=== PATIENT | male | born 1990 | race Caucasian/White ===

== ENCOUNTER 2018-06-18 18:46 | Emergency (ER) | payer OTHER ==
[2018-06-18] MEDS ORDERED: NS 1,000 ML IV ONE (19:22)
--- NOTE | 2018-06-18 19:25 | EDPHY ---
H & P Time Seen by Provider: 06/18/18 19:08 HPI/ROS: CHIEF COMPLAINT: Abdominal pain HISTORY OF PRESENT ILLNESS: Patient is visiting from [place], went snowboarding on Thursday at the [facility] [place] when he caught the front edge of his snowboard and fell forwards. The he has had some back and abdominal pain ever since and then on Thursday had abdominal pain followed by multiple episodes of diarrhea. About 10 times since then. Today he had worsening abdominal pain had episode of diarrhea with red blood in the toilet. Presents here after driving from [place] to [place]. Worse with palpation, not better worse with eating or drinking, no vomiting. REVIEW OF SYSTEMS: Eye: no change in vision ENT: no sore throat Cardiac: no chest pain or syncope Pulmonary: no cough or SOB Abdomen: HPI Musculoskeletal: HPI Skin: no rash Neuro: no headache, no weakness or numbness in legs Constitutional: no fever : No hematuria A comprehensive 10 point review of systems is otherwise negative aside from elements mentioned in the history of present illness. PAST MEDICAL HISTORY: Negative Social history: No recent foreign travel. Lives in [place] in [place], went to the [facility]. General Appearance: Alert and conversant, cooperative. Eyes: No scleral icterus. ENT, Mouth: Normal mucous membranes. Respiratory: Normal respiratory effort, breath sounds equal, lungs are clear to auscultation. Cardiovascular: Regular rate and rhythm. Gastrointestinal: Right upper quadrant and McBurney's point tenderness to palpation, decreased bowel sounds, no hernia, normal male . Neurological: Alert, face symmetric, normal motor and sensory in extremities. Ambulatory. Skin: Warm and dry, no rashes. Musculoskeletal: No cervical or thoracic spinal tenderness but he has midline lumbar tenderness to palpation. Psychiatric: Not agitated. Emergency Department course/MDM: The plan for i-STAT and then CT scanning abdomen and pelvis with lumbar spine reconstruction. Differential considered including but not limited to gastroenteritis, GI bleed, appendicitis, intra-abdominal bleeding from trauma. Rectal examination with anoscopy shows internal hemorrhoid with no active bleeding. Likely irritated from diarrhea. 2154: Negative abdominal pelvis CT per Dr. Aldana. Results discussed with the patient. Likely infectious gastrointestinal problem , but does not appear to have acute significant GI bleed, intestinal perforation , appendicitis, internal bleeding from trauma, renal injury, spine fracture. Symptomatic treatment and warned he needs to follow up in [place] for a slightly elevated liver function test. Smoking Status: Heavy smoker Constitutional: Initial Vital Signs Temperature (C) 36.8 C 06/18/18 19:03 Heart Rate 94 06/18/18 19:03 Respiratory Rate 18 06/18/18 19:03 Blood Pressure 134/93 H 06/18/18 19:03 O2 Sat (%) 97 06/18/18 19:03 O2 Delivery Mode Room Air Allergies/Adverse Reactions: No Known Allergies Allergy (Verified 06/18/18 19:03) Home Medications: Medication Instructions Recorded None 03/19/09 Medical Decision Making - Diagnostics Imaging Results: Imaging Impressions Abdomen CT 06/18/18 19:58 Impression: No evidence of abdominopelvic inflammatory mass or ascites. Dr. Polo was notified of these findings by telephone at 10:00 PM on 06/18/2018 Imaging: Discussed imaging studies w/ at home independent call center agent Radiologist - Data Points Laboratory Results: Laboratory Results 06/18/18 19:45 06/18/18 19:45 06/18/18 06/18/18 06/18/18 19:45 19:45 19:45 WBC 9.12 10^3/uL 10^3/uL (3.80-9.50) RBC 5.15 10^6/uL 10^6/uL (4.40-6.38) Hgb 15.7 g/dL g/dL (13.7-17.5) POC Hgb 15.6 gm/dL gm/dL (13.7-17.5) Hct 44.2 % % (40.0-51.0) POC Hct 46 % % (40-51) MCV 85.8 fL fL (81.5-99.8) MCH 30.5 pg pg (27.9-34.1) MCHC 35.5 g/dL g/dL (32.4-36.7) RDW 11.6 % % (11.5-15.2) Plt Count 357 10^3/uL 10^3/uL (150-400) MPV 9.4 fL fL (8.7-11.7) Neut % (Auto) 78.2 % H % (39.3-74.2) Lymph % (Auto) 17.7 % % (15.0-45.0) [place]ether % (Auto) 3.5 % L % (4.5-13.0) Eos % (Auto) 0.0 % L % (0.6-7.6) Baso % (Auto) 0.3 % % (0.3-1.7) Nucleat RBC Rel Count 0.0 % % (0.0-0.2) Absolute Neuts (auto) 7.13 10^3/uL H 10^3/uL (1.70-6.50) Absolute Lymphs (auto) 1.61 10^3/uL 10^3/uL (1.00-3.00) Absolute Monos (auto) 0.32 10^3/uL 10^3/uL (0.30-0.80) Absolute Eos (auto) 0.00 10^3/uL L 10^3/uL (0.03-0.40) Absolute Basos (auto) 0.03 10^3/uL 10^3/uL (0.02-0.10) Absolute Nucleated RBC 0.00 10^3/uL 10^3/uL (0-0.01) Immature Gran % 0.3 % % (0.0-1.1) Immature Gran # 0.03 10^3/uL 10^3/uL (0.00-0.10) POC Sodium 141 mEq/L mEq/L (135-145) Sodium 139 mEq/L mEq/L (135-145) POC Potassium 3.7 mEq/L mEq/L (3.3-5.0) Potassium 4.0 mEq/L mEq/L (3.5-5.2) POC Chloride 103 mEq/L mEq/L (97-110) Chloride 104 mEq/L mEq/L (97-110) Carbon Dioxide 23 mEq/l mEq/l (22-31) Anion Gap 12 mEq/L mEq/L (6-14) POC BUN 17 mg/dL mg/dL (7-23) BUN 18 mg/dL mg/dL (7-23) Creatinine 0.9 mg/dL mg/dL (0.7-1.3) POC Creatinine 0.9 mg/dL mg/dL (0.7-1.3) Estimated GFR > 60 Glucose 105 mg/dL H mg/dL (70-100) POC Glucose 105 mg/dL H mg/dL (70-100) Calcium 9.8 mg/dL mg/dL (8.5-10.4) Total Bilirubin 0.7 mg/dL mg/dL (0.1-1.4) Conjugated Bilirubin 0.4 mg/dL mg/dL (0.0-0.5) Unconjugated Bilirubin 0.3 mg/dL mg/dL (0.0-1.1) AST 56 IU/L IU/L (17-59) ALT 115 IU/L H IU/L (21-72) Alkaline Phosphatase 63 IU/L IU/L (38-126) Total Protein 8.1 g/dL g/dL (6.3-8.2) Albumin 5.2 g/dL H g/dL (3.5-5.0) Lipase 95 IU/L IU/L (23-300) Medications Given: Discontinued Medications Hydrocodone Bitart/Acetaminophen ([place] 5/325mg Prepack#6) 1 btl TAKEHOME EDNOW ONE Stop: 06/18/18 22:04 Last Admin: 06/18/18 22:16 Dose: 1 btl Fentanyl (Sublimaze) 50 mcg IVP EDNOW ONE Stop: 06/18/18 19:45 Last Admin: 06/18/18 19:54 Dose: 50 mcg Hydromorphone HCl (Dilaudid) 0.5 mg IVP EDNOW ONE Stop: 06/18/18 20:58 Last Admin: 06/18/18 21:00 Dose: 0.5 mg Sodium Chloride (Ns) 1,000 mls @ 0 mls/hr IV EDNOW ONE; Wide Open PRN Reason: Protocol Stop: 06/18/18 19:23 Last Admin: 06/18/18 19:38 Dose: 1,000 mls Point of Care Test Results: Chemistry 06/18/18 19:45 POC Sodium 141 mEq/L mEq/L (135-145) POC Potassium 3.7 mEq/L mEq/L (3.3-5.0) POC Chloride 103 mEq/L mEq/L (97-110) POC BUN 17 mg/dL mg/dL (7-23) POC Creatinine 0.9 mg/dL mg/dL (0.7-1.3) POC Glucose 105 mg/dL H mg/dL (70-100) ISTAT H&H 01/18/19 19:45 POC Hgb 15.6 gm/dL gm/dL (13.7-17.5) POC Hct 46 % % (40-51) Departure - Departure Disposition: Home, Routine, Self-Care Clinical Impression: Diarrhea Qualifiers: Diarrhea type: presumed infectious Qualified Code(s): R19.7 - Diarrhea, unspecified Abdominal pain Qualifiers: Abdominal location: generalized Qualified Code(s): R10.84 - Generalized abdominal pain Condition: Good Instructions: Hydrocodone/Acetaminophen (By mouth), Acute Diarrhea (ED), Acute Abdominal Pain (ED) Referrals: Promise Chris MD [Medical Doctor] - As per Instructions NONE *PRIMARY CARE P,. [Primary Care Provider] - As per Instructions (Please follow-up with your primary care doctor when you return home. Bring the labs and the copy of the CT scan. You had a single liver function test, the ALT, which was slightly elevated that needs to be rechecked in the next month.)
[2018-06-18] MEDS ORDERED: fentaNYL 100 MCG/2 ML INJ IVP ONE (19:44)
[2018-06-18 19:49] LABS: PLATELET COUNT 357 10^3/uL (150-400)
[2018-06-18] MEDS ORDERED: IOPAMIDOL (ISOVUE 370) 100 ML BTL IV ONE (20:02)
[2018-06-18] MEDS ORDERED: HYDROmorphONE/DILAUDID 2 MG/ML INJ IVP ONE (20:57)
[2018-06-18] MEDS ORDERED: HYDROCOD/APAP 5/325 PREPACK#6 BTL TAKEHOME ONE (22:03)
[2018-06-18 22:20] VITALS: BP 123/79
== END 2018-06-18 22:18 | disposition home or self-care (01) ==
DX: R10.84 Generalized abdominal pain (principal); R19.7 Diarrhea, unspecified; E86.9 Volume depletion, unspecified
CPT/HCPCS: 82435-PO; 82565-PO; 82947-PO; 84132-PO; 84295-PO; 84520-PO; 85014-ER; 96374; J1170; J3010; Q9967